=== PATIENT | female | born 1940 | race Caucasian/White ===

== ENCOUNTER → 2017-06-11 | Outpatient (CLI) | payer MEDICARE, OTHER ==
--- NOTE | 2017-06-11 12:30 | MRI ---
EXAM DESCRIPTION: Brain w/o Contrast. 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 FINDINGS: No hemorrhage, mass effect, diffusion restriction, or acute infarction is present. There is normal configuration of the ventricles and sulci. Mild generalized volume loss is present. Mild T2/FLAIR hyperintensities in the supratentorial white matter. No abnormal extra-axial fluid collections are present. Normal flow voids are present. The calvarium is intact. Visualized paranasal sinuses and mastoid air cells are clear. IMPRESSION: 1. No acute intracranial abnormality. 2. Mild chronic microangiopathy. 3. Mild volume loss. Electronically signed by: Cb Barajas MD 06/11/2017 12:29 PM CDT
== END | disposition home or self-care (01) ==
LOC: MRI 11:37
PROVIDERS: ATTEND Nurse Practitioner Family
DX: R41.81 Age-related cognitive decline (principal)

== ENCOUNTER → 2018-05-27 | Outpatient (CLI) | payer MEDICARE, OTHER | LOC: GMAH 10:43 | PROVIDERS: ATTEND Family Medicine | DX: E03.8 Other specified hypothyroidism (principal); E78.2 Mixed hyperlipidemia; N39.0 Urinary tract infection, site not specified ==

== ENCOUNTER → 2019-06-01 | Outpatient (CLI) | payer MEDICARE, OTHER | LOC: GMA MATASK 14:01 | PROVIDERS: ATTEND Family Medicine | DX: I10 Essential (primary) hypertension (principal) ==

== ENCOUNTER → 2020-06-07 | Outpatient (CLI) | payer MEDICARE, OTHER | LOC: GMA MATASK 10:49 | PROVIDERS: ATTEND Family Medicine | DX: I10 Essential (primary) hypertension (principal); E03.8 Other specified hypothyroidism ==